=== PATIENT | female | born 1985 | race African-American/Black ===

== ENCOUNTER 2020-10-10 03:08 | Emergency (ER) | payer SELFPAY ==
[~2020-10-10] VITALS: Ht 165.1 cm; Wt 76.0 kg
[2020-10-10 05:30] VITALS: BP 127/82
== END 2020-10-10 05:55 | disposition home or self-care (01) ==
LOC: ER 03:08
DX: F10.129 Alcohol abuse with intoxication, unspecified (principal); Y90.9 Presence of alcohol in blood, level not specified; R03.0 Elevated blood-pressure reading, without diagnosis of hypertension
CPT/HCPCS: 99283; Z7610